=== PATIENT | female | born 1950 | race Caucasian/White ===

== ENCOUNTER 2021-05-11 06:00 | Outpatient (RCR) | payer MEDICARE, MEDICAID, SELFPAY | END 2021-05-30 23:59 | disposition home or self-care (01) | LOC: SPT 06:00 | PROVIDERS: Referring Provider Nurse Practitioner; Visit Provider Nurse Practitioner | DX: R42 Dizziness and giddiness (principal) | CPT/HCPCS: 95992; 97162 ==

== ENCOUNTER → 2022-01-30 10:42 | Outpatient (BNVA) | payer MEDICARE, MEDICAID, SELFPAY | PROVIDERS: Visit Provider Family Medicine | DX: I10 Essential (primary) hypertension (principal); F32.A Depression, unspecified; F41.9 Anxiety disorder, unspecified; E11.9 Type 2 diabetes mellitus without complications; R53.83 Other fatigue; R26.89 Other abnormalities of gait and mobility | CPT/HCPCS: 80053; 80061; 82607; 82652; 83036; 84443; 85025 ==

== ENCOUNTER → 2022-07-10 12:06 | Outpatient (BNVA) | payer MEDICARE, MEDICAID, SELFPAY | PROVIDERS: PCP Family Medicine; Referring Provider Family Medicine; Visit Provider Specialist | DX: G20 Parkinson's disease (principal); R26.89 Other abnormalities of gait and mobility | CPT/HCPCS: 99204; 99205 ==

== ENCOUNTER 2022-07-16 06:00 | Outpatient (RCR) | payer MEDICARE, MEDICAID, SELFPAY | END 2022-07-31 23:59 | disposition home or self-care (01) | LOC: MPT 06:00 | PROVIDERS: PCP Family Medicine; Visit Provider Specialist | DX: R25.1 Tremor, unspecified (principal); R26.89 Other abnormalities of gait and mobility | CPT/HCPCS: 97110; 97112; 97116; 97162 ==

== ENCOUNTER 2022-08-01 06:00 | Outpatient (RCR) | payer MEDICARE, MEDICAID, SELFPAY | END 2022-08-30 23:59 | disposition home or self-care (01) | LOC: MPT 06:00 | PROVIDERS: PCP Family Medicine; Visit Provider Specialist | DX: R25.1 Tremor, unspecified (principal); R26.89 Other abnormalities of gait and mobility | CPT/HCPCS: 97110; 97112; 97116 ==

== ENCOUNTER → 2022-08-07 09:31 | Outpatient (BNVA) | payer MEDICARE, MEDICAID, SELFPAY | PROVIDERS: PCP Family Medicine; Visit Provider Family Medicine | DX: R11.2 Nausea with vomiting, unspecified (principal); E11.9 Type 2 diabetes mellitus without complications; I10 Essential (primary) hypertension; G20 Parkinson's disease; Z51.81 Encounter for therapeutic drug level monitoring | CPT/HCPCS: 80053; 83036; 85025 ==

== ENCOUNTER → 2022-09-16 08:04 | Outpatient (BNVA) | payer MEDICARE, MEDICAID, SELFPAY | PROVIDERS: PCP Family Medicine; Visit Provider Specialist | DX: G20 Parkinson's disease (principal); Z86.73 Personal history of transient ischemic attack (TIA), and cerebral infarction without residual deficits; H49.9 Unspecified paralytic strabismus | CPT/HCPCS: 99214 ==

== ENCOUNTER 2022-09-24 13:32 | Outpatient (CLI) | payer MEDICARE, MEDICAID, SELFPAY ==
--- NOTE | 2022-09-24 14:30 | MR_ITS ---
WS: [id number] MRI HEAD WITHOUT CONTRAST TECHNIQUE: Sagittal T1, T2 axial, T2 axial FLAIR, axial and coronal T1 images, axial susceptibility w eighted imaging, axial diffusion weighted images, and coronal T2 images were obtained. CLINICAL INFORMATION: Z86.73 - Personal history of transient ischemic attack (T... COMPARISON: None. FINDINGS: No evidence of restricted diffusion to suggest acute ischemia. Ventricular system and basal cisterns are patent. Moderate to advanced small vessel changes. Moderate parenchymal volume loss. Small vessel changes in the marcelo. Normal posterior fossa. Normal vascular flow voids at the skull base. No extra axial fluid collections. No evidence of mass or mass effect. Paranasal sinuses well aerated. Normal p osterior nasopharynx. Mastoid air cells are well aerated. Normal optic chiasm and pituitary infundibulum. Normal cavernous sinuses and Meckel's cave. Moderate symmetric atrophy temporal lobes and hippocampal formations. No hemosiderin on susceptibly weighted i mages. MR/MR head wo con* [id number] IMPRESSION: 1. No evidence of restricted diffusion to suggest acute ischemia. 2. Moderate to advanced small vessel changes with moderate parenchymal volume loss. Small vessel changes in the marcelo. 3. Moderate symmetric atrophy temporal lobes and hippocampal formations. 4. No hemosiderin on susceptibly weighted images. 5. No other acute findings.
== END 2022-09-24 13:33 | disposition home or self-care (01) ==
LOC: RAD 13:33
PROVIDERS: PCP Family Medicine; Visit Provider Specialist
DX: Z86.73 Personal history of transient ischemic attack (TIA), and cerebral infarction without residual deficits (principal); R25.1 Tremor, unspecified; G31.9 Degenerative disease of nervous system, unspecified
CPT/HCPCS: 70551

== ENCOUNTER → 2022-11-06 13:49 | Outpatient (BNVA) | payer MEDICARE, MEDICAID, SELFPAY | PROVIDERS: PCP Family Medicine; Visit Provider Family Medicine | DX: E11.9 Type 2 diabetes mellitus without complications (principal); I10 Essential (primary) hypertension | CPT/HCPCS: 80053; 83036; 85025 ==

== ENCOUNTER 2022-11-21 18:13 | Emergency (ER) | payer MEDICARE, MEDICAID, SELFPAY ==
--- NOTE | 2022-11-21 18:16 | CTR_ITS ---
PROCEDURE INFORMATION: Exam: CT Head Without Contrast Exam date and time: 11/21/2022 8:04 PM Age: 72 years old Clinical indication: Weakness, extremity TECHNIQUE: Imaging protocol: Computed tomography of the head without contrast. Radiation optimization: All CT scans at this facility use at least one of these dose optimization techniques: automated exposure control; mA and/or kV adjustment per patient size (includes targeted exams where dose is matched to clinical indication); or iterative reconstruction. COMPARISON: MR head wo con* [id number] 09/24/2022 2:25 PM RADIATION DOSE METRICS: Total DLP (mGy-cm): 1075.28 FINDINGS: Brain: Large amount diffuse white matter disease likely reflecting chronic microvascular ischemic changes. Cerebral ventricles: No ventriculomegaly. Paranasal sinuses: Visualized sinuses are unremarkable. No fluid levels. Mastoid air cells: Visualized mastoid air cells are well aerated. Bones/joints: Unremarkable. No acute fracture. Soft tissues: Unremarkable. CT/CT head wo con* [id number] IMPRESSION: Negative for intracranial hemorrhage or mass effect.
--- NOTE | 2022-11-21 18:16 | XRR_ITS ---
PROCEDURE INFORMATION: Exam: XR Chest Exam date and time: 11/21/2022 6:22 PM Age: 72 years old Clinical indication: Shortness of breath; Additional info: SOB TECHNIQUE: Imaging protocol: Radiologic exam of the chest. Views: 1 view. COMPARISON: No relevant prior studies available. FINDINGS: Lungs: Emphysematous changes. Right lower lobe calcified granulomas. Pleural spaces: Unremarkable. No pleural effusion. No pneumothorax. Heart/Mediastinum: Cardiomegaly. Bones/joints: Unremarkable. XR/XR chest 1V portable [id number] IMPRESSION: 1. Negative for infiltrate. 2. Cardiomegaly. 3. Emphysematous changes. 4. Right lower lobe calcified granulomas.
[2022-11-21 18:17] VITALS: BP 175/89; PULSE 91; RESP 14; TEMP 36.8; O2SAT 96; BMI 36.3
--- NOTE | 2022-11-21 18:23 | W.ED.WEAKNES ---
HPI - Weakness General: Chief complaint: Weakness Stated complaint: Feels Weird Time Seen by Provider: 11/21/22 18:16 Source: patient and EMS Mode of arrival: EMS Limitations: no limitations History of Present Illness: 72-year-old female is here from home states she been having increasing weakness with severe weakness today she states she slid in the fall and has not been able to get up or ambulate she was home alone she also had a slight cough and just feeling unwell no vomiting no diarrhea denies any serious injuries from her fall. Associated symptoms: Denies chest pain, dysuria, easy bruising, headache(s), nausea or vomiting Review of Systems Const: Reports: fatigue and malaise Eyes: Denies: blurry vision or eye discomfort ENMT: Denies: throat pain or dental pain Card: Denies: chest pain Resp: Denies: dyspnea GI: Denies: abdominal pain, nausea, vomiting or diarrhea : Denies: dysuria Musc: Denies: neck pain or back pain Skin/Breast: Denies: rash Neuro: Denies: headache(s) Psych: Denies: depression Shadi/Lymph: Denies: easy bruising All/Imm: Denies: urticaria PFSH ED PFSH: Medical History Anxiety Depression Hypertension Did not like lisinopril. Type 2 diabetes mellitus Surgical History H/O knee surgery H/O: hysterectomy Family History Brother Hypertension Sister Hypertension Social History Smoking and tobacco status: never smoked Alcohol intake: never Physical Exam Const: COMMON NORMALS: no acute distress, patient oriented x3 and healthy appearing HENMT: COMMON NORMALS: normocephalic and atraumatic HEAD & SCALP: normocephalic and atraumatic Eye: COMMON NORMALS: Equal, round and reactive pupils present and EOMs intact bilaterally PUPIL: Yes Equal, round and reactive pupils present Neck/C-Spine: COMMON NORMALS: full ROM and supple Chest: COMMONS NORMALS: normal inspection of the chest and normal palpation of entire chest wall Resp: COMMON NORMALS: normal respiratory effort, No retractions, No use of accessory muscles and clear to auscultation bilaterally AUSCULTATION: clear to auscultation bilaterally Cardio: COMMON NORMALS: regular rate, regular rhythm and No murmurs present (Cardio) RATE: regular rate RHYTHM: regular rhythm GI: COMMON NORMALS: Normal to inspection, nondistended, normoactive bowel sounds present, Soft to palpation, non-tender and no masses PALPATION: Yes Soft to palpation Extremity: COMMON NORMALS: normal to inspection and full ROM Neuro: COMMON NORMALS: patient oriented x3, moves all extremities and no focal motor deficits Psych: COMMON NORMALS: mental status grossly normal, Normal thought process present and cooperative THOUGHT PROCESS: Normal thought process present Skin: COMMON NORMALS: no rashes or lesions noted and no wounds GENERAL SKIN EXAM: no rashes or lesions noted Course Vital Signs: Vital signs: Vital Signs Temperature 98.2 F 11/21/22 18:17 Pulse Rate 90 11/21/22 19:30 Respiratory Rate 18 11/21/22 19:30 Blood Pressure 158/72 11/21/22 19:30 Pulse Oximetry 96 11/21/22 19:30 Oxygen Delivery Me thod 11/21/22 18:48 MDM - Weakness Medical Decision Making Patient presents with generalized weakness she feels improved here she is able ambulate the halls without difficulty blood work head CT are normal patient is discharged she is going to stay with her son alexandra she is to follow-up PCP and return if worsening Lab Data 11/21/22 20:00 11/21/22 20:00 Radiology Impressions Chest X-Ray 11/21/22 18:16 IMPRESSION: 1. Negative for infiltrate. 2. Cardiomegaly. 3. Emphysematous changes. 4. Right lower lobe calcified granulomas. Head CT 11/21/22 18:16 IMPRESSION: Negative for intracranial hemorrhage or mass effect. Laboratory Results WBC 10.1 10^3/uL (4.0-10.0) H 11/21/22 20:00 RBC 4.95 10^6/uL (4.1-5.3) 11/21/22 20:00 Hgb 13.6 g/dL (11.5-15.3) 11/21/22 20:00 Hct 44.4 % (37.0-47.0) 11/21/22 20:00 MCV 89.7 fl (81-99) 11/21/22 20:00 MCH 27.5 pg (28.0-34.0) L 11/21/22 20:00 MCHC 30.6 g/dL (30.0-36.0) 11/21/22 20:00 RDW 13.8 % (12.1-15.1) 11/21/22 20:00 Plt Count 199 10^3/cmm (130-400) 11/21/22 20:00 MPV 10.8 fL (7.4-10.4) H 11/21/22 20:00 Neut % (Auto) 90.1 % 11/21/22 20:00 Lymph % (Auto) 5.2 % 11/21/22 20:00 Josephine % (Auto) 4.0 % 11/21/22 20:00 Eos % (Auto) 0.0 % 11/21/22 20:00 Baso % (Auto) 0.2 % 11/21/22 20:00 Neut # (Auto) 9.06 10^3/uL (1.8-7.7) H 11/21/22 20:00 Lymph # (Auto) 0.5 10^3/uL (0.8-4.8) L 11/21/22 20:00 Josephine # (Auto) 0.4 10^3/uL (0.2-0.9) 11/21/22 20:00 Eos # (Auto) 0.0 10^3/uL (0.0-0.8) 11/21/22 20:00 Baso # (Auto) 0.0 10^3/uL (0.0-0.1) 11/21/22 20:00 Nucleated RBC % (auto) 0 % 11/21/22 20:00 Nucleated RBCs # 0.0 /100WBC 11/21/22 20:00 PT 13.70 SECONDS (12.1-14.9) 11/21/22 20:00 INR 1.02 (0.8-1.2) 11/21/22 20:00 Sodium 136 mmol/L (136-145) 11/21/22 20:00 Potassium 3.8 mmol/L (3.5-5.1) 11/21/22 20:00 Chloride 98 mmol/L (98-107) 11/21/22 20:00 Carbon Dioxide 25 mmol/L (22-29) 11/21/22 20:00 Anion Gap 16.8 (5-19) 11/21/22 20:00 BUN 16 mg/dL (8-23) 11/21/22 20:00 Creatinine 0.7 mg/dL (0.5-0.9) 11/21/22 20:00 GFR Calculation 82.7 mL/min (90-130) L 11/21/22 20:00 Glucose 147 mg/dL (65-115) H 11/21/22 20:00 POC Glucose 168 mg/dL (70-110) H 11/21/22 18:48 Calculated Osmolality 286 mOsm/kg (285-295) 11/21/22 20:00 Lactate 2.1 mmol/L (0.5-2.2) 11/21/22 20:00 Calcium 9.2 mg/dL (8.5-10.5) 11/21/22 20:00 Magnesium 1.6 mg/dL (1.7-2.3) L 11/21/22 20:00 Total Bilirubin 0.6 mg/dL (0.15-1.2) 11/21/22 20:00 AST 29 U/L (0-32) 11/21/22 20:00 ALT 16 U/L (0-33) 11/21/22 20:00 Alkaline Phosphatase 98 U/L (35-105) 11/21/22 20:00 Troponin T Baseline 17 ng/L (0-10) H 11/21/22 20:00 Total Protein 7.8 g/dL (6.6-8.7) 11/21/22 20:00 Albumin 4.2 g/dL (3.5-5.2) 11/21/22 20:00 Globulin 3.6 g/dL (1.3-4.6) 11/21/22 20:00 TSH 0.90 uIU/mL (0.27-4.20) 11/21/22 20:00 Urine Color Yellow (Yellow) 11/21/22 18:42 Urine Appearance Clear (CLEAR) 11/21/22 18:42 Urine pH 5 (5-7) 11/21/22 18:42 Ur Specific [place] 1.020 (1.005-1.030) 11/21/22 18:42 Urine Protein Neg (Negative) 11/21/22 18:42 Urine Glucose (UA) Norm (Normal) 11/21/22 18:42 Urine Ketones Negative (Negative) 11/21/22 18:42 Urine Blood Neg (Negative) 11/21/22 18:42 Urine Nitrate Negative (Negative) 11/21/22 18:42 Urine Bilirubin Neg (Negative) 11/21/22 18:42 Urine Urobilinogen Neg mg/dL (Negative) 11/21/22 18:42 Ur Leukocyte Esterase Negative (Negative) 11/21/22 18:42 Influenza Type A Ag negative (Negative) 11/21/22 18:47 Influenza Type B Ag negative (Negative) 11/21/22 18:47 SARS-CoV-2 Ag (Rapid) negative (Negative) 11/21/22 18:47 Discharge Plan Discharge Patient Disposition: Home Clinical Impression: Weakness Condition: Stable Prescriptions: New meclizine 25 mg tablet 25 mg PO BID PRN (Reason: dizziness) Qty: 20 0RF No Action alprazolam [Xanax] 1 mg tablet 1 mg PO QDAY PRN ibuprofen 800 mg tablet 800 mg PO TID miscellaneous medical supply Misc See Rx Instructions miscellaneous .COMPLEX Qty: 1 0RF Rx Instructions: rolling walker with a seat miscellaneous; rolling walker with a seat carbidopa-levodopa 25-100 mg tablet 1 tab PO TID 90 Days Qty: 270 2RF hydrochlorothiazide 25 mg tablet 25 mg PO DAILY 90 Days Qty: 90 1RF metoprolol succinate 50 mg tablet extended release 24 hr 50 mg PO DAILY 90 Days Qty: 90 1RF lisinopril 10 mg tablet 10 mg PO DAILY 30 Days Qty: 30 2RF ondansetron HCl 4 mg tablet 4 mg PO Q8H PRN (Reason: nausea and vomiting) Qty: 90 2RF hydroxyzine HCl 25 mg tablet 25 mg PO BID PRN (Reason: itching) 30 Days Qty: 60 3RF glipizide 2.5 mg tablet extended release 24hr 2.5 mg PO DAILY 90 Days Qty: 90 1RF duloxetine 60 mg capsule,delayed release(DR/EC) 60 mg PO DAILY 90 Days Qty: 90 1RF aspirin [Adult Low Dose Aspirin] 81 mg tablet,delayed release (DR/EC) 81 mg PO DAILY 90 Days Qty: 90 1RF Discharge Orders: Discharge ED (Routine); Ordered 11/21/22 Ordered By: Bud Valentine Referrals: Kristin Bruce MD [Primary Care Provider] - 1-3 days Discharge Diet: Advance as tolerated Discharge Activity: Resume usual activity Patient Instructions: Weakness (ED) Coding Level of Care Code ED Automatic I Threading Machine Feeder for Chg Fwd Exam Comprehensive
--- NOTE | 2022-11-21 18:33 | ECG_ITS ---
[facility] Test Date: 2022-11-21 Pat Name: Terrie Salmeron Department: Room: Gender: Female Web Analytics Specialist: : 1950 Requested By: Bud Valentine Order Number: [id number] Meenakshi MD: Biju Shields M.D. Measurements Intervals [place] Rate: 88 P: 59 IN: 137 QRS: -48 QRSD: 98 T: 79 QT: 385 QTc: 467 Interpretive Statements SINUS RHYTHM POSSIBLE LEFT ATRIAL ENLARGEMENT [-0.1mV P-WAVE IN V1/V2] LEFT ANTERIOR FASCICULAR BLOCK [QRS AXIS <= -45, QR IN I, RS IN II] POSSIBLE ANTERIOR MYOCARDIAL INFARCTION , PROBABLY OLD [30 ms Q WAVE IN V3/V4, OR R < 0.2 mV IN V4] No previous ECG available for comparison Electronically Signed On 11-22-2022 7:54:05 WARRANT CLERK by Biju Shields M.D. [id number]
[2022-11-21 18:46] LABS: Add Urine Microscopic? NO; Charge for UA Resulting for Rev
[2022-11-21 18:48] VITALS: BP 165/72; PULSE 90; RESP 16; O2SAT 95
[2022-11-21 18:48] LABS: Bilirubin Urine Neg (Negative); Blood Urine Neg (Negative); Glucose Urine UA Norm (Normal); Ketones Urine Negative (Negative); Leukocyte Esterase Urine Negative (Negative); Nitrate Urine Negative (Negative); Protein Urine Neg (Negative); Urine Appearance Clear (CLEAR); Urine Color Yellow (Yellow); Urobilinogen Urine Neg (Negative); pH Urine 5 (5-7)
[2022-11-21 18:51] LABS: Glucose Point of Care 168 mg/dL (70-110)
[2022-11-21 19:00] VITALS: BP 160/77; PULSE 88; RESP 18; O2SAT 94
[2022-11-21] MEDS: sodium chloride 0.9% 1,000 ML 999 ML IV (19:00)
[2022-11-21 19:21] LABS: Influenza A by IFA negative (Negative); Influenza B by IFA negative (Negative)
[2022-11-21 19:22] LABS: SARS Covid-2 Antigen negative (Negative)
[2022-11-21 19:30] VITALS: BP 158/72; PULSE 90; RESP 18; O2SAT 96
[2022-11-21 20:10] LABS: Basophils % 0.2 %; Hematocrit 44.4 % (37.0-47.0); Hemoglobin 13.6 g/dL (11.5-15.3); Lymphocytes # 0.5 10^3/uL (0.8-4.8); Lymphocytes % 5.2 %; Mean Corpuscular HGB Conc 30.6 g/dL (30.0-36.0); Mean Corpuscular Hemoglobin 27.5 pg (28.0-34.0); Mean Corpuscular Volume 89.7 fl (81-99); Mean Platelet Volume 10.8 fL (7.4-10.4); Monocytes # 0.4 10^3/uL (0.2-0.9); Neutrophils # 9.06 10^3/uL (1.8-7.7); Neutrophils % 90.1 %; Nucleated Red Blood Cells % 0 %; Platelet Count 199 10^3/cmm (130-400); Red Blood Count 4.95 10^6/uL (4.1-5.3); Red Cell Distribution Width 13.8 % (12.1-15.1); White Blood Count 10.1 10^3/uL (4.0-10.0)
--- NOTE | 2022-11-21 20:17 | ECG_ITS ---
[facility] Test Date: 2022-11-21 Pat Name: Terrie Salmeron Department: Room: Gender: Female Supervisor Marble: : 1950 Requested By: Bud Valentine Order Number: [id number] Meenakshi MD: Biju Shields M.D. Measurements Intervals [place] Rate: 90 P: 57 VA: 134 QRS: -48 QRSD: 102 T: 81 QT: 336 QTc: 413 Interpretive Statements SINUS RHYTHM LEFT ANTERIOR FASCICULAR BLOCK [QRS AXIS <= -45, QR IN I, RS IN II] POSSIBLE ANTERIOR MYOCARDIAL INFARCTION , PROBABLY OLD [30 ms Q WAVE IN V3/V4, OR R < 0.2 mV IN V4] Compared to ECG 11/21/2022 18:33:44 No significant changes Electronically Signed On 11-22-2022 7:55:56 OUTSOLE LEVELER by Biju Shields M.D. [id number]
[2022-11-21 20:21] LABS: INR 1.02 (0.8-1.2)
[2022-11-21 20:34] LABS: Lactate (Lactic Acid level) 2.1 mmol/L (0.5-2.2)
[2022-11-21 20:36] LABS: Troponin(5th) Baseline 17 ng/L (0-10)
[2022-11-21 20:37] LABS: Alanine Aminotransferase 16 U/L (0-33); Albumin Level 4.2 g/dL (3.5-5.2); Alkaline Phosphatase 98 U/L (35-105); Anion Gap 16.8 (5-19); Aspartate Amino Transferase 29 U/L (0-32); Blood Urea Nitrogen 16 mg/dL (8-23); Calcium 9.2 mg/dL (8.5-10.5); Carbon Dioxide 25 mmol/L (22-29); Chloride 98 mmol/L (98-107); Globulin 3.6 g/dL (1.3-4.6); Glomerular Filtration Rate 82.7 mL/min (90-130); Glucose 147 mg/dL (65-115); Magnesium 1.6 mg/dL (1.7-2.3); Osmolality Calculated 286 mOsm/kg (285-295); Potassium 3.8 mmol/L (3.5-5.1); Sodium 136 mmol/L (136-145); Total Bilirubin 0.6 mg/dL (0.15-1.2); Total Protein 7.8 g/dL (6.6-8.7)
[2022-11-21 21:00] VITALS: BP 129/108; PULSE 102; RESP 16; O2SAT 91
[2022-11-21 21:16] VITALS: BP 180/90; PULSE 92; RESP 16; O2SAT 95
[2022-11-21] MEDS: meclizine 25 mg tablet PO (21:39)
== END 2022-11-21 21:47 | disposition home or self-care (01) ==
PROVIDERS: Emergency Provider Emergency Medicine; PCP Family Medicine
DX: R53.1 Weakness (principal); Z79.84 Long term (current) use of oral hypoglycemic drugs; Z79.82 Long term (current) use of aspirin; Z20.822 Contact with and (suspected) exposure to COVID-19; I10 Essential (primary) hypertension; E11.9 Type 2 diabetes mellitus without complications
CPT/HCPCS: 36416; 70450; 71045; 80053; 81003; 82962; 83605; 83735; 84443; 84484; 85025; 85610; 87426; 87804; 93005; 96360; 96361; 99285; J7030; J8597

== ENCOUNTER → 2022-12-17 14:02 | Outpatient (BNVA) | payer MEDICARE, MEDICAID, SELFPAY | PROVIDERS: PCP Family Medicine; Visit Provider Specialist | DX: G20 Parkinson's disease (principal); R11.2 Nausea with vomiting, unspecified; H49.9 Unspecified paralytic strabismus; G37.9 Demyelinating disease of central nervous system, unspecified; F81.9 Developmental disorder of scholastic skills, unspecified; Z77.22 Contact with and (suspected) exposure to environmental tobacco smoke (acute) (chronic); G43.909 Migraine, unspecified, not intractable, without status migrainosus; I10 Essential (primary) hypertension | CPT/HCPCS: 96116; 99214 ==

== ENCOUNTER → 2023-02-20 12:59 | Outpatient (BNVA) | payer MEDICARE, MEDICAID, SELFPAY | PROVIDERS: PCP Family Medicine; Visit Provider Specialist | DX: G20 Parkinson's disease (principal); G37.9 Demyelinating disease of central nervous system, unspecified; F06.70 Mild neurocognitive disorder due to known physiological condition without behavioral disturbance; F33.1 Major depressive disorder, recurrent, moderate | CPT/HCPCS: 99214 ==

== ENCOUNTER 2023-03-04 06:00 | Outpatient (RCR) | payer MEDICARE, MEDICAID, SELFPAY | END 2023-03-30 23:59 | disposition home or self-care (01) | LOC: MPT 06:00 | PROVIDERS: Visit Provider Specialist | DX: R26.9 Unspecified abnormalities of gait and mobility (principal); G20 Parkinson's disease | CPT/HCPCS: 97110; 97112; 97116; 97162; 97530 ==

== ENCOUNTER 2023-03-31 06:00 | Outpatient (RCR) | payer MEDICARE, MEDICAID, SELFPAY | END 2023-04-30 23:59 | disposition home or self-care (01) | LOC: MPT 06:00 | PROVIDERS: PCP Family Medicine; Visit Provider Specialist | DX: G20 Parkinson's disease (principal); G37.9 Demyelinating disease of central nervous system, unspecified; R26.89 Other abnormalities of gait and mobility | CPT/HCPCS: 97110; 97112; 97116 ==

== ENCOUNTER → 2023-04-01 13:45 | Outpatient (BNVA) | payer MEDICARE, MEDICAID, SELFPAY | PROVIDERS: PCP Family Medicine; Visit Provider Family Medicine | DX: I10 Essential (primary) hypertension (principal); I11.9 Hypertensive heart disease without heart failure; E11.9 Type 2 diabetes mellitus without complications | CPT/HCPCS: 80053; 80061; 83036 ==

== ENCOUNTER → 2023-05-27 14:59 | Outpatient (BNVA) | payer MEDICARE, MEDICAID, SELFPAY | PROVIDERS: PCP Family Medicine; Visit Provider Specialist | DX: G20 Parkinson's disease (principal); F06.70 Mild neurocognitive disorder due to known physiological condition without behavioral disturbance | CPT/HCPCS: 96116; 99214 ==

== ENCOUNTER → 2023-06-17 14:30 | Outpatient (BNVA) | payer MEDICARE, MEDICAID, SELFPAY | PROVIDERS: PCP Family Medicine; Visit Provider Specialist | DX: G20 Parkinson's disease (principal); G37.9 Demyelinating disease of central nervous system, unspecified | CPT/HCPCS: 99213 ==

== ENCOUNTER → 2023-08-11 13:29 | Outpatient (BNVA) | payer MEDICARE, MEDICAID, SELFPAY | PROVIDERS: PCP Family Medicine; Visit Provider Family Medicine | DX: E11.9 Type 2 diabetes mellitus without complications; I10 Essential (primary) hypertension | CPT/HCPCS: 80053; 83036 ==

== ENCOUNTER → 2024-01-22 10:42 | Outpatient (BNVA) | payer MEDICARE, MEDICAID, SELFPAY | PROVIDERS: PCP Family Medicine; Visit Provider Family Medicine | DX: E11.9 Type 2 diabetes mellitus without complications (principal); I10 Essential (primary) hypertension | CPT/HCPCS: 80053; 83036 ==

== ENCOUNTER → 2024-02-11 14:40 | Outpatient (BNVA) | payer MEDICARE, MEDICAID, SELFPAY | PROVIDERS: PCP Family Medicine; Visit Provider Nurse Practitioner | DX: M25.471 Effusion, right ankle (principal) | CPT/HCPCS: 73610; 84550 ==

== ENCOUNTER → 2024-07-26 11:23 | Outpatient (BNVA) | payer MEDICARE, MEDICAID, SELFPAY | PROVIDERS: PCP Family Medicine; Visit Provider Family Medicine | DX: E11.9 Type 2 diabetes mellitus without complications (principal) | CPT/HCPCS: 80053; 80061; 83036 ==

== ENCOUNTER → 2024-08-31 14:38 | Outpatient (BNVA) | payer MEDICARE, MEDICAID, SELFPAY | PROVIDERS: PCP Family Medicine; Visit Provider Specialist | DX: R29.90 Unspecified symptoms and signs involving the nervous system (principal); E11.42 Type 2 diabetes mellitus with diabetic polyneuropathy; G20.A2 Parkinson's disease without dyskinesia, with fluctuations; G37.9 Demyelinating disease of central nervous system, unspecified | CPT/HCPCS: 99214 ==

== ENCOUNTER → 2025-02-07 13:33 | Outpatient (BNVA) | payer MEDICARE, MEDICAID, SELFPAY | PROVIDERS: PCP Family Medicine; Visit Provider Family Medicine | DX: F41.9 Anxiety disorder, unspecified (principal); F41.0 Panic disorder [episodic paroxysmal anxiety]; F32.A Depression, unspecified; E11.42 Type 2 diabetes mellitus with diabetic polyneuropathy; E11.9 Type 2 diabetes mellitus without complications; I10 Essential (primary) hypertension; L50.9 Urticaria, unspecified; G20.A2 Parkinson's disease without dyskinesia, with fluctuations; W19.XXXA Unspecified fall, initial encounter; Y92.009 Unspecified place in unspecified non-institutional (private) residence as the place of occurrence of the external cause | CPT/HCPCS: 80053; 83036; 85025 ==

== ENCOUNTER → 2025-02-16 13:53 | Outpatient (BNVA) | payer MEDICARE, MEDICAID, SELFPAY | PROVIDERS: PCP Family Medicine; Visit Provider Specialist | DX: G20.A2 Parkinson's disease without dyskinesia, with fluctuations (principal); G37.9 Demyelinating disease of central nervous system, unspecified | CPT/HCPCS: 99214 ==

== ENCOUNTER → 2025-06-27 15:10 | Outpatient (BNVA) | payer MEDICARE, MEDICAID, SELFPAY | PROVIDERS: PCP Family Medicine; Visit Provider Family Medicine | DX: I10 Essential (primary) hypertension (principal); E11.22 Type 2 diabetes mellitus with diabetic chronic kidney disease; N18.31 Chronic kidney disease, stage 3a | CPT/HCPCS: 80053; 80061; 83036 ==

== ENCOUNTER → 2025-11-10 10:43 | Outpatient (BNVA) | payer MEDICARE, MEDICAID, SELFPAY | PROVIDERS: PCP Family Medicine; Visit Provider Family Medicine | DX: E11.22 Type 2 diabetes mellitus with diabetic chronic kidney disease (principal); N18.31 Chronic kidney disease, stage 3a | CPT/HCPCS: 80048; 83036 ==